=== PATIENT | female | born 1985 | race Caucasian/White ===

== ENCOUNTER 2017-07-12 21:47 | Emergency (ER) | payer SELFPAY ==
[~2017-07-12] VITALS: Ht 152.4 cm; Wt 68.0 kg
[2017-07-12 21:50] VITALS: BP 149/75
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
[2017-07-12] MEDS ORDERED: IV RINGERS SOLUTION,LACTATED 1,000 ML IV SCH (22:00)
[2017-07-12] MEDS ORDERED: MORPHINE SULFATE 10 MG/ML SYRINGE. SQ ONE (22:15)
[2017-07-12 22:37] LABS: BASO % 1 % (0-3); EOS # 0.1 x10^3/uL (0.0-0.7); EOS % 2 % (0-3); HEMOGLOBIN 11.7 g/dL (12.0-15.5); LYMPH # 1.7 x10^3/uL (1.0-4.8); LYMPH % 20 % (24-48); MEAN CORPUSCULAR HEMOGLOBIN 31 pg (25-35); MEAN CORPUSCULAR HGB CONC 34 g/dL (31-37); MEAN CORPUSCULAR VOLUME 89 fL (79-100); MONO # 0.9 x10^3/uL (0.0-1.1); MONO % 11 % (0-9); NEUT # 5.6 x10^3uL (1.8-7.7); NEUT % 67 % (31-73); PLATELET COUNT 327 x10^3/uL (140-400); RED BLOOD COUNT 3.82 x10^6/uL (3.50-5.40); WHITE BLOOD COUNT 8.5 x10^3/uL (4.0-11.0)
[2017-07-12 22:44] LABS: BACTERIA,URINE MANY /HPF (0-FEW); BILIRUBIN,URINE NEG (NEG); CLARITY,URINE CLOUDY; COLOR,URINE YELLOW; GLUCOSE,URINE NEG (NEG); NITRITE,URINE POS (NEG); UROBILINOGEN,URINE 1 mg/dL (0.2 mg/dL); WBC,URINE TNTC /HPF (0-4)
[2017-07-12 22:45] LABS: SQUAMOUS EPITHELIAL CELL,UR MOD /LPF
[2017-07-12] MEDS ORDERED: diphenhydrAMINE 50 MG/ML VIAL IVP ONE (22:45)
[2017-07-12] MEDS ORDERED: HYDROmorphone PF 2 MG/ML VIAL IM ONE (22:45)
[2017-07-12 22:55] LABS: CALCIUM 8.7 mg/dL (8.5-10.1); CREATININE 0.7 mg/dL (0.6-1.0); DIRECT BILIRUBIN 0.1 mg/dL (0.0-0.2); GFR 98.9; MAGNESIUM 1.9 mg/dL (1.8-2.4); TOTAL BILIRUBIN 0.4 mg/dL (0.2-1.0); TOTAL PROTEIN 7.5 g/dL (6.4-8.2)
[2017-07-12 22:58] LABS: POTASSIUM 3.4 mmol/L (3.5-5.1)
[2017-07-12 23:41] LABS: BARBITURATES NEG (NEG); BENZODIAZEPINES NEG (NEG); CANNABINOIDS POS (NEG); COCAINE NEG (NEG); METHADONE NEG (NEG); OPIATES POS (NEG); PHENCYCLIDINE NEG (NEG)
[2017-07-12 23:42] LABS: AMPHETAMINE/METHAMPHETAMINE POS (NEG)
[2017-07-12] MEDS ORDERED: CONTRAST GIVEN MC PRN (23:45)
[2017-07-12] MEDS ORDERED: IOHEXOL 240 MG/ML 50ML VIAL. PO ONE (23:55)
[2017-07-13] MEDS ORDERED: HYDROmorphone PF 2 MG/ML VIAL IM ONE
[2017-07-13] MEDS ORDERED: SMZ/TMP 800/160MG TABLET. PO ONE
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
--- NOTE | 2017-07-13 07:50 | RAD ---
Acute abdomen series. History: Pain. Comparison: None. Findings: Frontal chest radiograph. Cardiac silhouette appears within normal limits for size. No pneumoperitoneum, pneumothorax, or large pleural effusion seen. No focal infiltrate is identified. Several right rib fractures are seen, may be acute. Supine and upright AP views of the abdomen. Bowel gas pattern is nonspecific, without evidence of small bowel obstruction. Cholecystectomy clips are present. Mild-moderate colonic stool is seen. Impression: 1. Right rib fractures. 2. No acute abnormality identified in the abdomen. Electronically signed by: Elver Quijano MD (07/13/2017 7:47 AM) [facility]
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
== END 2017-07-13 03:45 | disposition home or self-care (01) ==
LOC: ER 21:47
DX: S22.41XA Multiple fractures of ribs, right side, initial encounter for closed fracture (principal); S82.091A Other fracture of right patella, initial encounter for closed fracture; S20.211A Contusion of right front wall of thorax, initial encounter; S70.01XA Contusion of right hip, initial encounter; R10.84 Generalized abdominal pain; D64.9 Anemia, unspecified; F15.10 Other stimulant abuse, uncomplicated; F12.10 Cannabis abuse, uncomplicated; R94.5 Abnormal results of liver function studies; Z91.19 Patient's noncompliance with other medical treatment and regimen; Z72.0 Tobacco use; Z88.5 Allergy status to narcotic agent; Z88.0 Allergy status to penicillin; Z88.8 Allergy status to other drugs, medicaments and biological substances; Z91.041 Radiographic dye allergy status; V29.9XXA Motorcycle rider (driver) (passenger) injured in unspecified traffic accident, initial encounter; Y93.89 Activity, other specified; Y99.8 Other external cause status; Y92.488 Other paved roadways as the place of occurrence of the external cause
CPT/HCPCS: 36415; 70450; 71250; 72125; 73564; 74022; 74176; 80048; 80076; 80307; 81001; 82553; 83690; 83735; 83880; 84484; 85025; 85610; 85730; 87086; 87186; 96372; 96374; 99285; J1170; J1200; J7120; Q9966; G0479